=== PATIENT | male | born 1950 | race Caucasian/White ===

== ENCOUNTER → 2021-01-14 | Outpatient (CLI) | payer MEDICARE ==
[~2021-01-14] MED LIST: TRAM50TA3 PO
--- NOTE | 2021-01-14 13:48 | Diagnostic Imaging Report ---
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 Serum blood glucose level time of injection is 85 mg/dL. Patient was administered 11.8 mCi F-18 FDG intravenously in the right antecubital location and PET imaging was performed from the top of skull to mid thighs. Noncontrast CT was also performed for attenuation correction and anatomic correlation. No prior PET/CT studies available for comparison. Comparison is made with outside CT chest, abdomen and pelvis study from 01/06/2021. There is symmetric activity throughout the brain. There are innumerable osseous lesions which are hypermetabolic. Hypermetabolic lesions involving multiple vertebral bodies in the cervical, thoracic and lumbar spine are noted. There are hypermetabolic lesions involving bilateral ribs as well as the right clavicle as well as the bony pelvis, bilateral proximal femora and the sacrum. A hypermetabolic lymph node in the left supraclavicular region measures 11 mm in size and demonstrates SUV max of 10.3. There is a hypermetabolic mass at the GE junction with an SUV max of 14.9. There are innumerable lymph nodes in the central retroperitoneum as well as portacaval and a region posterior to the pancreas. A portacaval anurag mass demonstrates SUV max 16.3. No hypermetabolic pelvic lymph nodes are seen. Physiologic activity in GI/ tract is noted. IMPRESSION: Findings consistent with widespread metastatic disease. There are innumerable osseous hypermetabolic lesions. There is hypermetabolic lymphadenopathy in the left supraclavicular region as well as throughout the upper abdomen. Hypermetabolic GE junction mass consistent with patient's primary malignancy is noted as well. Dictated by: Dictated on workstation # [id number]
== END ==
LOC: RAD 10:30
PROVIDERS: ATTEND Internal Medicine Hematology & Oncology
DX: C16.0 Malignant neoplasm of cardia (principal); M89.9 Disorder of bone, unspecified; R59.0 Localized enlarged lymph nodes
CPT/HCPCS: 78815; A9552

== ENCOUNTER 2021-01-15 05:30 | Outpatient (CLI) | payer MEDICARE ==
[~2021-01-15] VITALS: Ht 175.3 cm; Wt 98.0 kg
[2021-01-15] MEDS ORDERED: TRAM50TA3 PO (12:34)
== END 2021-01-15 12:53 | disposition home or self-care (01) ==
LOC: PREOP 05:30
PROVIDERS: ATTEND Surgery
DX: Z01.818 Encounter for other preprocedural examination (principal)

== ENCOUNTER 2021-01-20 15:06 | Outpatient (RCR) | payer MEDICARE ==
[~2021-01-20] VITALS: Ht 175.3 cm; Wt 100.2 kg
[~2021-01-20 15:06] MED LIST changes: +CARBOPLATIN IV SCH; +D5W IV SCH; +DENOSUMAB 120 MG/1.7 ML (XGEVA) SQ SCH; +FAMOTIDINE 20MG/2ML IV (CANCER CTR) IV SCH; +LORazepam INJ 2 MG/ML VIAL CANCER CTR IV SCH; +NS IV 1000 ML (CANCER CTR) IV SCH; +diphenhydrAMINE 50 MG/ML INJ (CANCER CENTER) IV PRN
== END 2021-04-04 09:37 | disposition home or self-care (01) ==
LOC: ONC 15:06
PROVIDERS: ATTEND Internal Medicine Hematology & Oncology
DX: C15.9 Malignant neoplasm of esophagus, unspecified (principal); Z79.891 Long term (current) use of opiate analgesic; Z79.1 Long term (current) use of non-steroidal anti-inflammatories (NSAID)
CPT/HCPCS: 77280; 77290; 77295; 77300; 77334; 77470; 99204; 99214

== ENCOUNTER → 2021-01-21 | Day surgery (SDC) | payer MEDICARE ==
[~2021-01-21] VITALS: Ht 175.3 cm; Wt 98.0 kg
[~2021-01-21] MED LIST changes: +0.9% SODIUM CHLORIDE PF INJ 20 ML VIAL ONE; -CARBOPLATIN IV SCH; -D5W IV SCH; -DENOSUMAB 120 MG/1.7 ML (XGEVA) SQ SCH; -FAMOTIDINE 20MG/2ML IV (CANCER CTR) IV SCH; +GLYCOPYRROLATE 0.2 MG/ML (ROBINUL) 2 ML VIAL ONE; +HEParin (CENTRAL IV FLUSH) 500 UNIT/5 ML SYR ONE; +LACTATED RINGERS 1,000 ML IV PRN; +LIDOCAINE/EPI 1%-1:100,000 (XYLOCAINE) 20ML ONE; -LORazepam INJ 2 MG/ML VIAL CANCER CTR IV SCH; +MIDAZOLAM 2 MG/2 ML (VERSED) VIAL ONE; -NS IV 1000 ML (CANCER CTR) IV SCH; +PROPOFOL INJECTION 50 ML IV ONE; +ceFAZolin 2 GM IV Premixed 50 ML IV ONE; -diphenhydrAMINE 50 MG/ML INJ (CANCER CENTER) IV PRN; +morphine INJ 10 MG/ML 1ML (SYR OR VIAL) IVP ONE
[2021-01-21 11:48] VITALS: BP 123/78
--- NOTE | 2021-01-21 12:57 | Progress Note-Pre Operative ---
Pre-Operative Progress Note H&P Reviewed The H&P was reviewed, patient examined and no changes noted. Date Seen by Provider: January 21, 2021 Time Seen by Provider: 12:56 Date H&P Reviewed: January 21, 2021 Time H&P Reviewed: 12:56 Pre-Operative Diagnosis: METASTATIC ESOPHAGEAL CANCER TODD KELLY DO January 21, 2021 12:57
[2021-01-21 14:17] VITALS: BP 100/63
[2021-01-21 14:20] VITALS: BP 101/63
--- NOTE | 2021-01-21 14:24 | Discharge Inst-Simple/Standard ---
Discharge Inst-Standard Patient Instructions/Follow Up Plan of Care/Instructions/FU: 2 weeks Comfort. Clear liquids today. Flush gastrostomy tube daily with 25 ml of water starting tomorrow. Rotate tube bolster at skin level to change points of contact on skin couple times per day. Activity as Tolerated: No Discharge Diet: Liquid Diet (for today and may resume regular diet tomorrow.) TODD KELLY DO January 21, 2021 14:24
--- NOTE | 2021-01-21 14:24 | Anesthesia-General Post-Op ---
MAC Patient Condition Mental Status/LOC: Same as Preop Cardiovascular: Satisfactory Nausea/Vomiting: Absent Respiratory: Satisfactory Pain: Controlled Complications: Absent Post Op Complications Complications None Follow Up Care/Instructions Patient Instructions None needed. Anesthesiology Discharge Order Discharge Order Patient is doing well, no complaints, stable vital signs, no apparent adverse anesthesia problems. No complications reported per nursing. RAH YU CRNA January 21, 2021 14:24
--- NOTE | 2021-01-21 14:27 | Diagnostic Imaging Report ---
EXAMINATION: Fluoroscopy. INDICATION: Port-A-Cath insertion. COMPARISON: There are no prior studies available for comparison. FINDINGS: Fluoroscopic assistance was provided for Dr. Luigi Moyer during his Port-A-Cath insertion. 24.5 seconds of fluoroscopy time was utilized. A single spot film of the right thorax was obtained. There is a Port-A-Cath in place with the tip of the catheter overlying the distal superior vena cava. IMPRESSION: Fluoroscopic assistance was provided for Dr. Moyer. Dictated by: Dictated on workstation # [id number]
[2021-01-21 14:35] VITALS: BP_SYST 102; BP_SYST 90; BP_DIAS 63; BP_DIAS 71
--- NOTE | 2021-01-21 14:42 | Diagnostic Imaging Report ---
EXAMINATION: Portable erect AP chest at 2:26 p.m. INDICATION: Port placement. As noted on the fluoroscopic exam performed prior to this study there is a right-sided Port-A-Cath in place. The tip of the catheter overlies the distal superior vena cava and seems to be in good position. There is no sign of a pneumothorax. The heart is enlarged. The lungs are generally clear although the left retrocardiac region is not well penetrated. There does appear to be a 7 mm calcified granuloma overlying the left lung base. The mediastinum is not widened. The osseous structures are intact. IMPRESSION: 1. There has been insertion of a central venous catheter on right without apparent complication. Specifically there is no sign of a pneumothorax. 2. There is cardiomegaly but there is no acute cardiopulmonary abnormality appreciated. Dictated by: Dictated on workstation # [id number]
[2021-01-21 15:05] VITALS: BP 110/70
[2021-01-21 15:40] VITALS: BP 110/70
--- NOTE | 2021-01-21 18:20 | Progress Note-Post Operative ---
Post-Operative Progess Note Surgeon (s)/Senior Fire Protection Engineer (s) Surgeon TODD KELLY DO Senior Fire Protection Engineer: Not applicable Pre-Operative Diagnosis METASTATIC ESOPHAGEAL CANCER Post-Operative Diagnosis Same Procedure & Operative Findings Date of Procedure 01/21/21 Procedure Performed/Findings PROCEDURE: Right internal jugular port placement using ultrasound guidance. COMPLICATIONS: None. INDICATIONS: The patient is a 71 year old male needing port for chemotherapy. Patient understands the risks and benefits of port placement and wished to proceed with the procedure. Consent was signed on the chart. PROCEDURE: The patient was taken to the operating suite, was prepped and draped in the sterile fashion. A surgical pause was performed. Ultrasound was used to locate the internal jugular vein. Once located anesthetic was infiltrated above it. Using micro-access kit, the right internal vein was accessed. Dark nonpulsatile blood was withdrawn. The wire was inserted. Fluoroscopy assured proper placement. The needle was removed. The micro-access dilator was advanced over the wire and the wire was removed. The regular wire was inserted and fluoroscopy assured proper placement. The wire was then secured. Local anesthetic was used to anesthetize from the neck for tunneling down to the right chest and for pocket creation. A 15 blade scalpel was used to make an incision over the right chest. Cautery was used to dissect down to the pectoral fascia. A pocket was created with blunt dissection. The dilator sheath was then advanced over the wire under fluoroscopy and the dilator and wire were removed. The [place]ong catheter was inserted through the sheath and the sheath was then removed. The [place] wire was removed. The catheter was then tunneled to the right chest pocket. Fluoroscopy was used to cut to length and this was then attached to the port which was then placed within the pocket. The port was then accessed without difficulty. It was then flushed with saline and then heparin. The subcutaneous tissues were then reapproximated using 3-0 Vicryl. The areas were then washed and dried. Skin Affix was placed over incision. The insertion point of the neck Skin Affix was placed over the incision. Esophagogastroduodenoscopy was then performed. Scope was inserted in the mouth down the esophagus stomach and into the duodenum without difficulty. There is no polyps masses ulcerations within the duodenum. Scope slowly tracked back to the stomach was further insufflated. From the GE junction down changes of the esophageal cancer evident. Towards the antral portion of the stomach this was further insufflated. From the outside the blottable portion of the stomach was easily visualized within the stomach. Localized sac was infiltrated the skin in the left upper quadrant. An 11 blade scalpel was used to make a skin incision and a Angiocath needle was then inserted under visualization of the EGD as well and the catheter was snared the needle was removed. The guidewire was then inserted and grasped and brought out through the mouth. The gastrostomy tube was then attached to it. The gastrostomy tube was then pulled from the incision site to where the gastrostomy tube went into place. The scope was reinserted into the mouth down the esophagus and stomach noting good placement. The scope was instilled retracted back into the distal esophagus which the esophageal cancer is evident. Scope was then slowly tracked back to completely removed. The gastrostomy tube was secured with a bolster at approximately 5 cm. The areas washed and dried and sterile bandage was applied. The patient tolerated the procedure well without complication and was taken to recovery room in stable condition. Chest x-ray is pending. Anesthesia Type MAC with local Estimated Blood Loss Estimated blood loss (mL): Minimal Specimens/Packing Specimens Removed Not applicable TODD KELLY DO January 21, 2021 18:20
== END ==
LOC: SDC 11:12
PROVIDERS: ATTEND Surgery
DX: C15.9 Malignant neoplasm of esophagus, unspecified (principal); C79.9 Secondary malignant neoplasm of unspecified site; E66.9 Obesity, unspecified; R63.4 Abnormal weight loss; R13.10 Dysphagia, unspecified; Z68.31 Body mass index [BMI] 31.0-31.9, adult; Z79.891 Long term (current) use of opiate analgesic; Z90.89 Acquired absence of other organs; Z87.891 Personal history of nicotine dependence; Z79.899 Other long term (current) drug therapy; Z82.49 Family history of ischemic heart disease and other diseases of the circulatory system; Z80.9 Family history of malignant neoplasm, unspecified; Z83.6 Family history of other diseases of the respiratory system
CPT/HCPCS: 36561; 43246; 71045; 76000; 87081; C1788